=== PATIENT | male | born 1985 | race African-American/Black ===

== ENCOUNTER 2020-12-18 10:01 | Emergency (ER) | payer SELFPAY ==
--- NOTE | 2020-12-18 10:08 | PCM.EKG ---
#1 Interpretation EKG Interpretation Comments: EKG dated 12/18/2020 at 10:00 AM shows a sinus rhythm with a heart rate of 93. The LA interval is 144 and the QT duration is 410. The axis is 45. The QRS ST and T are normal. There is no prior for comparison. Impression normal EKG
[2020-12-18] MEDS ORDERED: Sodium Chloride 0.9% 1,000 ML IV ONE (10:13)
--- NOTE | 2020-12-18 10:19 | EDM.PDOC ---
ED HPI GENERAL MEDICAL PROBLEM - General Stated Complaint: HIGH HEART RATE Time Seen by Provider: 12/18/20 10:05 Source of Information: Reports: Patient History Limitations: Reports: No Limitations - History of Present Illness INITIAL COMMENTS - FREE TEXT/NARRATIVE: HISTORY AND PHYSICAL: History of present illness: Patient is a 35-year-old male who presents emergency room today as he was [facility] the [facility] with concern of a high heart rate during exercise. Patient states that he was doing a variation of lifting heavy weights, squats, and doing ladder climbs repetitively and states that he was told his heart rate got up to 180. Patient states that he had no symptoms or concerns and states he just felt like he was working out and states that he did not have any chest pain or shortness of breath. Patient states that after a few minutes of rest, his heart rate came back down but they instructed him to come to the emergency room for further evaluation. Patient states at this time, he feels completely normal and states throughout this entire process he has not had any symptoms or concerns. Patient denies any health history. Patient denies fever, chills, chest pain, shortness of breath, or cough. Denies headache, neck stiff ness, change in vision, syncope, or near syncope. Denies nausea, vomiting, abdominal pain, diarrhea, constipation, or dysuria. Has not n oted any blood in urine or stool. Patient has been eating and drinking appropriately. Review of systems: As per history of present illness and below otherwise all systems reviewed and negative. Past medical history: As per history of present illness and as reviewed below otherwise noncontributory. Surgical history: As per history of present illness and as reviewed below otherwise noncontribu tory. Social history: See social history for further information Family history: As per history of present illness and as reviewed below otherwise noncontributory. Physical exam: General: Patient is alert, oriented, and in no acute distress. Patient sitting comfortably on exam table. Vitals stable and reviewed by me. HEENT: Atraumatic, normocephalic, pupils equal and reactive bilaterally, ne gative for conjunctival pallor or scleral icterus, mucous membranes moist, throat clear, neck supple, nontender, trachea midline. No drooling or trismus noted. No meningeal signs. No hot potato voice noted. Lungs: Clear to auscultation, breath sounds equal bilaterally, chest nontender. Heart: S1S2, regular rate and rhythm without overt murmur Abdomen: Soft, nondistended, nontender. Negative for masses or hepatosplenomegaly. Negative for costovertebral tenderness. Pelvis: Stable nontender. Genitourinary: Deferred. Rectal: Deferred. Skin: Intact, warm, dry. No lesions or rashes noted. Extremities: Atraumatic, negative for cords or calf pain. Neurovascular unremarkable. Neuro: Awake, alert, oriented. Cranial nerves II through XII unremarkable. Cerebellum unremarkable. Motor and sensory unremarkable throughout. Exam nonfocal. Notes: Patient is an otherwise healthy 35-year-old male who presents emergency room today secondary to elevated heart rate during exercise at [employer] [facility]. Upon arrival to the ED, patient is vitally stable and well-appearing on exam. Will obtain basic lab work, provide fluid bolus, and reassess patient. See Dr. Hebert dictation for specific EKG interpretation. Otherwise, normal sinus rhythm without STEMI or ischemic changes with a rate of 93 bpm. Mild derangements of lab work today unremarkable. Upon reevaluation of patient, he continues to not have any symptoms remains vitally stable throughout stay in ED. Strict return precautions thoroughly discussed with patient. Discussed importance for follow-up with a primary care provider. Voices understanding and is agreeable to plan of care. Denies any further questions or concerns at this time. Diagnostics: CBC, CMP, EKG, troponin, magnesium, TSH Therapeutics: Saline Prescription: None Impression: Medical screening exam Plan: 1. Encourage small but frequent sips of fluid to prevent dehydration. 2. Follow-up with a primary care provider as discussed. Return to the ED as needed and as discussed. Definitive disposition and diagnosis as appropriate pending reevaluation and review of above. - Related Data Allergies Allergy/AdvReac Type Severity Reaction Status Date / Time No Known Allergies Allergy Verified 12/18/20 10:32 Home Meds: Home Meds . [No Known Home Meds] 12/18/20 [History] ED ROS GENERAL - Review of Systems Review Of Systems: Comprehensive ROS is negative, except as noted in HPI. ED EXAM, GENERAL - Physical Exam Exam: See Below (see dictation) Course - Vital Signs Last Recorded V/S: Last Vital Signs Temp 98.9 F 12/18/20 10:18 Pulse 96 12/18/20 10:30 Resp 18 12/18/20 10:30 BP 142/103 H 12/18/20 10:30 Pulse Ox 99 12/18/20 10:30 - Orders/Labs/Meds Labs: Laboratory Tests 12/18/20 12/18/20 Range/Units 10:11 10:11 WBC 9.50 (4.0-11.0) K/uL RBC 5.60 (4.50-5.90) M/uL Hgb 17.5 H (13.0-17.0) g/dL Hct 49.0 (38.0-50.0) % MCV 87.5 (80.0-98.0) fL MCH 31.3 (27.0-32.0) pg MCHC 35.7 (31.0-37.0) g/dL RDW Std Deviation 40.7 (28.0-62.0) fl RDW Coeff of Laura 13 (11.0-15.0) % Plt Count 298 (150-400) K/uL MPV 10.10 (7.40-12.00) fL Neut % (Auto) 63.9 (48.0-80.0) % Lymph % (Auto) 27.5 (16.0-40.0) % [place] % (Auto) 7.3 (0.0-15.0) % Eos % (Auto) 0.9 (0.0-7.0) % Baso % (Auto) 0.4 (0.0-1.5) % Neut # (Auto) 6.1 H (1.4-5.7) K/uL Lymph # (Auto) 2.6 H (0.6-2.4) K/uL [place] # (Auto) 0.7 (0.0-0.8) K/uL Eos # (Auto) 0.1 (0.0-0.7) K/uL Baso # (Auto) 0.0 (0.0-0.1) K/uL Nucleated RBC % 0.0 /100WBC Nucleated RBCs # 0 K/uL Sodium 140 (136-148) mmol/L Potassium 4.3 (3.5-5.1) mmol/L Chloride 102 (98-107) mmol/L Carbon Dioxide 28.6 (21.0-32.0) mmol/L BUN 15 (7.0-18.0) mg/dL Creatinine 1.2 (0.8-1.3) mg/dL Est Cr Clr Drug Dosing 96.10 mL/min Estimated GFR (MDRD) > 60.0 ml/min Glucose 100 (74-106) mg/dL Calcium 9.7 (8.5-10.1) mg/dL Magnesium 2.3 (1.8-2.4) mg/dL Total Bilirubin 0.7 (0.2-1.0) mg/dL AST 15 (15-37) IU/L ALT 41 (14-63) IU/L Alkaline Phosphatase 102 (46-116) U/L Troponin I < 0.050 (0.000-0.056) ng/mL Total Protein 9.3 H (6.4-8.2) g/dL Albumin 4.9 (3.4-5.0) g/dL Globulin 4.4 H (2.6-4.0) g/dL Albumin/Globulin Ratio 1.1 (0.9-1.6) TSH, Ultra Sensitive 1.26 (0.36-3.74) uIU/mL Meds: Medications Discontinued Medications Generic Name Dose Route Start Last Admin Trade Name Freq PRN Reason Stop Dose Admin Sodium Chloride 1,000 mls @ 999 mls/hr 12/18/20 10:13 12/18/20 11:00 Normal Saline IV 12/18/20 11:13 999 mls/hr BOLUS ONE Administration Departure - Departure Time of Disposition: 11:14 Disposition: Home, Self-Care 01 Clinical Impression: Encounter for medical screening examination - Discharge Information Forms: ED Department Discharge Additional Instructions: The following information is given to patients seen in the emergency department who are being discharged to home. This information is to outline your options for follow-up care. We provide all patients seen in our emergency department with a follow-up referral. The need for follow-up, as well as the timing and circumstances, are variable depending upon the specifics of your emergency department visit. If you don't have a primary care physician on staff, we will provide you with a referral. We always advise you to contact your personal physician following an emergency department visit to inform them of the circumstance of the visit and for follow-up with them and/or the need for any referrals to a consulting specialist. The emergency department will also refer you to a specialist when appropriate. This referral assures that you have the opportunity for follow-up care with a specialist. All of these measure are taken in an effort to provide you with optimal care, which includes your follow-up. Under all circumstances we always encourage you to contact your private physician who remains a resource for coordinating your care. When calling for follow-up care, please make the office aware that this follow-up is from your recent emergency room visit. If for any reason you are refused follow-up, please contact the [facility] Emergency Department at and asked to speak to the emergency department charge nurse. [facility] [address] [place] [id number] [facility] [address] [place] [id number] 1. Encourage small but frequent sips of fluid to prevent dehydration. 2. Follow-up with a primary care provider as discussed. Return to the ED as needed and as discussed. Sepsis Event Note (ED) - Focused Exam Vital Signs: Vital Signs Temp Pulse Resp BP Pulse Ox 12/18/20 10:30 96 18 142/103 H 99 12/18/20 10:18 98.9 F 105 H 25 H 152/113 H 99
[2020-12-18 11:04] LABS: BLOOD UREA NITROGEN,BUN 15 mg/dL (7.0-18.0); CARBON DIOXIDE,CO2 28.6 mmol/L (21.0-32.0); CHLORIDE,CL 102 mmol/L (98-107); GLUCOSE RANDOM 100 mg/dL (74-106); POTASSIUM,K 4.3 mmol/L (3.5-5.1); SODIUM,NA 140 mmol/L (136-148)
== END 2020-12-18 11:45 | disposition home or self-care (01) ==
LOC: MW.ED 10:01
DX: Z02.89 Encounter for other administrative examinations (principal)
CPT/HCPCS: 36415; 80053; 83735; 84443; 84484; 85025; 93005; 99283; J7030